=== PATIENT | female | born 1955 | race Caucasian/White ===

== ENCOUNTER → 2017-08-05 | Outpatient (CLI) | payer BC ==
--- NOTE | 2017-08-06 11:56 | BD ---
EXAMINATION TYPE: MG DEXA axial skeleton. DATE OF EXAM: 08/05/2017 COMPARISON: NONE CLINICAL HISTORY: Postmenopausal female. Osteoporosis screening. Height: 5 FT 4 1/2 IN Weight: 214 FRAX RISK QUESTIONS: History of Fracture in Adulthood: YES Secondary Osteoporosis: 3. Menopause before 45: NO 5. Chronic liver disease: FATTY RISK FACTORS HISTORY OF: Postmenopausal woman: PART HYST AGE 43 MEDICATIONS: Thyroid Medications: YES Which medication: SYNTHROID How Lon YEARS Additional Medications: ATORVASTATIN, LETROZOLE, FARXIGA, METFORMIN, INSULIN, SYNTHROID Additional History: BREAST CANCER 2017 RADIATION EXAM MEASUREMENTS: Bone mineral densitometry was performed using the [employer] System. Bone mineral density as measured about the Lumbar spine is: ----- L1-L4(G/cm2): 1.119 T Score Values are as follows: ----- L2: 0.4 ----- L3: -0.5 ----- L4: -1.4 ----- L1-L4: -0.5 BASELINE Bone mineral density about the R hip (g/cm2): 1.020 Bone mineral density about the L hip (g/cm2): 0.976 T Score values are as follows: -----R Neck: -0.1 -----L Neck: -0.4 -----R Total: 1.2 -----L Total: 0.1 BASELINE IMPRESSION: Normal (Values between +1 and -1 indicate normal bone mass). Consider repeating this study in 5 year s or sooner if there is some new clinical indication. NOTE: T-SCORE=SD OF THE YOUNG ADULT MEAN.
== END | disposition home or self-care (01) ==
LOC: RADBDWWP 16:32
PROVIDERS: ATTEND Internal Medicine Hematology & Oncology
DX: N95.1 Menopausal and female climacteric states (principal); C50.412 Malignant neoplasm of upper-outer quadrant of left female breast; Z79.890 Hormone replacement therapy
CPT/HCPCS: 77080

== ENCOUNTER → 2019-08-26 | Outpatient (CLI) | payer MEDICARE, BC ==
--- NOTE | 2019-08-26 10:47 | FL ---
EXAMINATION TYPE: FL UGI DATE OF EXAM: 08/26/2019 COMPARISON: NONE HISTORY: Epigastric pain TECHNIQUE: A double contrast UGI study is performed. 46 fluoroscopic images were saved with 1.16 min utes of fluoroscopy time was utilized. FINDINGS: The esophagus shows normal motility. There is emptying into the stomach secondary to a small hiatal h ernia. No evidence of stricture noted. The stomach shows normal distensibility, peristalsis, and mucosal folds. No evidence of any mass or ulcer disease. Moderate degree gastroesophageal reflux was seen during real time performance of this study. The duodenal bulb, sweep, and proximal small bowel loops are unremarkable. IMPRESSION: Small hiatal hernia resulting in moderate gastroesophageal reflux.
== END | disposition home or self-care (01) ==
LOC: RADUSWWP 09:38
PROVIDERS: ATTEND Family Medicine
DX: K44.9 Diaphragmatic hernia without obstruction or gangrene (principal); K21.9 Gastro-esophageal reflux disease without esophagitis
CPT/HCPCS: 74240

== ENCOUNTER → 2019-10-27 | Outpatient (CLI) | payer MEDICARE, BC ==
--- NOTE | 2019-10-27 17:44 | BD ---
EXAMINATION TYPE: Axial Bone Density DATE OF EXAM: 10/27/2019 COMPARISON: 08/05/2017 CLINICAL HISTORY: Height: 63.5 IN Weight: 199 LBS FRAX RISK QUESTIONS: History of Fracture in Adulthood: LT TIB/FIB FX AGE 61 RISK FACTORS HISTORY OF: Active: YES Postmenopausal woman: AGE 43 PARTIAL HYST Take estrogen and/or progesterone medications: NOT NOW How lon YEAR Lost more than 2 inches in height since high school: YES 2 1/2 IN MEDICATIONS: Thyroid Medications: YES Which medication: Levothyroxine How Long: SINCE 1997 Additional Medications: LEVOTHYROXINE, PROAIR HFA, LETROZOLE,ATORVASTATIN, METFORMIN Additional History: BREAST CANCER WITH RADIATION EXAM MEASUREMENTS: Bone mineral densitometry was performed using the [employer] System. Bone mineral density as measured about the Lumbar spine is: ----- L1-L4(G/cm2): 1.160 T Score Values are as follows: ----- L2: 0.5 ----- L3: -0.4 ----- L4: -1.0 ----- L1-L4: -0.2 Bone mineral density has: Increased 2.7% since study of: 08/05/2017 Bone mineral density about the R hip (g/cm2): 0.838 Bone mineral density about the L hip (g/cm2): 0.897 T Score values are as follows: -----R Neck: -1.4 -----L Neck: -1.0 -----R Total: -0.4 -----L Total: -0.6 Bone mineral density has: Decreased -13.3% since study of: 08/05/2017 IMPRESSION: Normal (Values between +1 and -1 indicate normal bone mass). Consider repeating this study in 5 year s or sooner if there is some new clinical indication. NOTE: T-SCORE=SD OF THE YOUNG ADULT MEAN.
== END | disposition home or self-care (01) ==
LOC: RADBDWWP 15:33
PROVIDERS: ATTEND Internal Medicine Hematology & Oncology
DX: C50.412 Malignant neoplasm of upper-outer quadrant of left female breast (principal); N95.1 Menopausal and female climacteric states
CPT/HCPCS: 77080

== ENCOUNTER → 2019-11-30 | Outpatient (CLI) | payer MEDICARE, BC ==
[2019-11-30 07:50] LABS: African American GFR (CKD) >90 (>60 ml/min/1.73 sqM); Blood Urea Nitrogen 31 mg/dL (7-17); Non-African American GFR(CKD) >90 (>60 ml/min/1.73 sqM)
--- NOTE | 2019-11-30 10:00 | CT ---
EXAMINATION TYPE: CT ChestAbdPelvis w con DATE OF EXAM: 11/30/2019 COMPARISON: None HISTORY: 64-year-old female Breast cancer, suspect METS TECHNIQUE: Contiguous axial scanning of the chest, abdomen, and pelvis performed with IV Contrast, pa tient injected with 100 mL of Isovue 300. Delayed images through the kidneys were obtained. Coronal/s agittal reconstructions performed. CT DLP: 1653.2 mGycm Automated exposure control for dose reduction was used. FINDINGS: CHEST: Postlumpectomy changes within the left breast. Heart borderline enlarged without pericardial effusion. Aorta shows conventional arterial supply and anatomy. Ectatic upper descending thoracic aorta 3.0 cm. No thoracic lymphadenopathy by CT size criteria. There is breathing motion artifact. Strandy atelectasis in the lower lungs. No consolidation or pleur al effusion. Nonspecific 5 mm right basilar pulmonary nodule, axial image 35 should be reassessed at follow-up. ABDOMEN: Small hiatal hernia. No focal liver lesion or biliary ductal dilatation. Portal venous system is patent. Gallbladder, adrenal glands, spleen within normal limits. Cysts within the bilateral kidneys measuring up to 2.8 cm on the right and 3.5 cm on the left. There is a low-density, cystic-appearing lesion measuring 1.4 x 0.8 cm along the pancreatic body, cor onal image 35 and axial image 61. Follow-up is recommended. No dilated small bowel, free fluid, or free air. No mesenteric or retroperitoneal lymphadenopathy. [id number] stool burden. Oral contrast progressed to the distal transverse colon. No pericoloni c inflammatory change. PELVIS: Bladder urine distended. Scattered pelvic phleboliths. Uterus surgically absent. Both ovaries are vis ualized. Mild pelvic floor relaxation. No abnormal fluid collection in the pelvis or pelvic lymphaden opathy. BONES: Accentuated mid to lower thoracic kyphosis with moderate degenerative disc disease. Facet arthropathy lower lumbar spine. No osseous destructive process. IMPRESSION: 1. POSTEXCISIONAL CHANGES WITHIN THE LEFT BREAST. 2. 5 MM NONSPECIFIC RIGHT BASILAR PULMONARY NODULE BUT OTHERWISE WITHOUT ANY EVIDENCE FOR METASTATIC DISEASE IN THE CHEST, ABDOMEN, OR PELVIS. THREE-MONTH FOLLOW-UP CT CHEST RECOMMENDED TO REASSESS. 3. LOW-DENSITY, CYSTIC-APPEARING LESION OF THE PANCREATIC BODY MEASURING 1.4 X 0.8 CM. PANCREAS MRI E VALUATION RECOMMENDED.
== END | disposition home or self-care (01) ==
LOC: RADCTMAIN 06:56
PROVIDERS: ATTEND Internal Medicine Hematology & Oncology
DX: R91.1 Solitary pulmonary nodule (principal); Z98.890 Other specified postprocedural states; C50.412 Malignant neoplasm of upper-outer quadrant of left female breast; Z88.2 Allergy status to sulfonamides; Z88.0 Allergy status to penicillin; Z91.048 Other nonmedicinal substance allergy status; Z88.1 Allergy status to other antibiotic agents
CPT/HCPCS: 82565; 84520; 71260; 74177; 36415; Q9967

== ENCOUNTER → 2020-03-09 | Outpatient (CLI) | payer MEDICARE, BC ==
[2020-03-09 18:21] LABS: African American GFR (CKD) >90 (>60 ml/min/1.73 sqM); Blood Urea Nitrogen 36 mg/dL (7-17); Non-African American GFR(CKD) >90 (>60 ml/min/1.73 sqM)
--- NOTE | 2020-03-10 05:10 | CT ---
EXAMINATION TYPE: CT ChestAbdPelvis w con DATE OF EXAM: 03/09/2020 COMPARISON: 11/30/2019 HISTORY: 64-year-old female C50.412, Follow up for breast cancer. TECHNIQUE: Contiguous axial scanning of the chest, abdomen, and pelvis performed with IV Contrast, pa tient injected with 100ml mL of Isovue 300. Delayed images through the kidneys were obtained. Coronal /sagittal reconstructions performed. CT DLP: 1732.1 mGycm Automated exposure control for dose reduction was used. FINDINGS: CHEST: Postsurgical and posttreatment change demonstrated within the left breast with posteriorly located reynolds rgical clips and skin thickening. Bilateral breast nodularity has an overall similar configuration as compared to 11/30/2019. Heart normal size without pericardial effusion. Conventional arch vessel branching anatomy. Ectatic u pper descending thoracic aorta at 3.1 cm. No axillary, mediastinal, or hilar lymphadenopathy by CT size criteria. No consolidation or pleural effusion. 6 mm right basilar pulmonary nodule, axial image 41 remains lar myron unchanged (old exam remeasured to provide a direct comparison). ABDOMEN: No focal liver lesion or biliary ductal dilatation. Portal venous system is patent. Gallbladder, adrenal glands, and spleen with small anterior splenule within normal limits. Cystic lesion along the anterior margin of the pancreatic body currently measures 1.9 x 0.9 cm (measu red on coronal and axial series) versus 1.4 x 0.8 cm on 11/30/2019. Two benign renal cortical cysts on the right measuring 3.0 cm each and a centrally located left midpo le renal cyst measuring 3.2 cm are redemonstrated. No dilated small bowel, free fluid, free air. No mesenteric or retroperitoneal lymphadenopathy. Liquid stool within the right hemicolon. Otherwise, there is mild to moderate stool burden. No roxann lonic inflammatory change. PELVIS: Bladder urine distended. Uterus surgically absent. Both ovaries are visualized. Left-sided pelvic phl ebolith. No abnormal fluid collection in the pelvis or pelvic lymphadenopathy. BONES: Stable tiny sclerotic bone island left femoral head and posterior right iliac bone. Facet arthropathy lower lumbar spine and endplate spondylosis mid to lower thoracic spine. Accentuated thoracic kyphos is. No osseous destructive process. IMPRESSION: 1. POSTLUMPECTOMY AND POSTTREATMENT CHANGES WITHIN THE LEFT BREAST. THE REMAINING NODULAR AREAS OF BR EAST TISSUE ON BOTH SIDES APPEARS UNCHANGED FROM 11/30/2019. 2. STABLE 6 MM RIGHT BASILAR PULMONARY NODULE FOR 3 MONTHS. 3. CYSTIC PANCREATIC BODY LESION CURRENTLY MEASURING 1.9 X 0.9 CM (VERSUS 1.4 X 0.8 CM, PREVIOUSLY). SLIGHT INCREASE IN SIZE. SIX-MONTH FOLLOW-UP WITH PANCREAS MRI WITH MRCP RECOMMENDED TO REASSESS AND FURTHER CHARACTERIZE.
== END | disposition home or self-care (01) ==
LOC: RADCTMAIN 16:50
PROVIDERS: ATTEND Internal Medicine Hematology & Oncology
DX: Z98.890 Other specified postprocedural states (principal); C50.412 Malignant neoplasm of upper-outer quadrant of left female breast; Z88.2 Allergy status to sulfonamides; Z88.0 Allergy status to penicillin; Z88.5 Allergy status to narcotic agent; Z88.1 Allergy status to other antibiotic agents
CPT/HCPCS: 82565; 84520; 71260; 74177; 36415; Q9967

== ENCOUNTER → 2020-05-01 | Outpatient (CLI) | payer MEDICARE, BC ==
--- NOTE | 2020-05-02 07:09 | MR ---
EXAMINATION TYPE: MR MRCP DATE OF EXAM: 05/01/2020 COMPARISON: CT March 09, [address] November 30, 2019 HISTORY: Pancreatic cyst, HX of Breast CA Standard multiplanar, multisequence MRI departmental protocol Multiplanar, multisequence images of the abdomen were acquired. Diffusion weighted imaging was perfor med. Thin and thick slice MRCP imaging performed on a MRI scanner. FINDINGS: Liver/gallbladder/pancreas/biliary system: Liver remains normal in size. Gallbladder appears within n ormal limits. There is no concerning solid or cystic intrahepatic mass. No intrahepatic or extra hepa tic biliary dilatation is present. Pancreas is normal in size. There is no pancreatic ductal dilatati on. There is a thin-walled cyst or cystic lesion anterior aspect mid body extending inferiorly measur ing 1.8 x 0.8 cm image 31 series 501 that appears to communicate with the main pancreatic duct on sabino ge 57 series 901 of MRCP images, this lesion has slightly more C-shaped structure on coronal image 13 measuring 1.8 cm craniocaudal dimension with suspected ductal communication. Lesion may be slightly larger from older studies. Remainder pancreas shows possible additional tiny punctate T2 hyperintense lesions in the distal body and tail. Remainder pancreatic duct unremarkable. Other: Scattered simple appearing thin-walled cysts of varying size and shape scattered throughout amy th kidneys with some cortical thinning. Findings consistent with products of chronic medical renal di sease. Lung bases are clear. No suspicious bowel dilatation. Visualized osseous structures are intact . IMPRESSION: There is 1.8 cm thin-walled cyst or cystic lesion in the anterior-inferior mid pancreatic body appears to communicate with main pancreatic duct. The lesion may be slightly larger from older studies. Differential includes cystic neoplasm such as IPMN, advise MRI/MRCP follow-up imaging in one year time to reassess.
== END | disposition home or self-care (01) ==
LOC: RADMRIMAIN 14:46
PROVIDERS: ATTEND Internal Medicine Hematology & Oncology
DX: K86.2 Cyst of pancreas (principal)
CPT/HCPCS: 74181

== ENCOUNTER → 2020-11-01 | Outpatient (CLI) | payer MEDICARE, BC | END | disposition home or self-care (01) | LOC: RADMRIMAIN 15:25 | PROVIDERS: ATTEND Internal Medicine Hematology & Oncology | DX: Z53.9 Procedure and treatment not carried out, unspecified reason (principal) ==

== ENCOUNTER → 2021-01-29 | Outpatient (CLI) | payer MEDICARE, BC ==
[2021-01-29 15:53] LABS: African American GFR (CKD) >90 (>60 ml/min/1.73 sqM); Blood Urea Nitrogen 26 mg/dL (7-17); Non-African American GFR(CKD) >90 (>60 ml/min/1.73 sqM)
--- NOTE | 2021-01-30 08:17 | CT ---
EXAMINATION TYPE: CT iac w con DATE OF EXAM: 01/29/2021 COMPARISON: NONE HISTORY: left acoustic nerve damage CT DLP: 187 mGycm. Automated Exposure Control for Dose Reduction was Utilized. TECHNIQUE: CT scan of internal auditory canal is performed with IV contrast, thin cut axial images ar e obtained, coronal reformatted images are also reviewed. Patient injected with 100 cc Isovue-300 FINDINGS: The external auditory canals are patent bilaterally. Mastoid air cells show no evidence of abnormal opacification bilaterally. The middle ear ossicles are symmetric and unremarkable. There is no evidence of suspicious surroundi ng soft tissue density to suggest cholesteatoma. The scutum is preserved bilaterally. The cochlea and the semicircular canals are symmetric and unremarkable. There is satisfactory bony o vergrowth over the superior semicircular canals bilaterally. Vestibular aqueduct and internal carotid canal appear unremarkable. No abnormal enhancement identified. Temporomandibular joints are maintained bilaterally. There are a few mucous retention cysts and/or po lyps in the maxillary sinuses bilaterally with mild mucosal thickening on the left along inferior asp ect. Visualized portion brain parenchyma is felt within normal limits. IMPRESSION: No significant abnormality seen to account for patient's symptoms.
== END | disposition home or self-care (01) ==
LOC: RADCTMAIN 14:51
PROVIDERS: ATTEND Otolaryngology
DX: H93.3X2 Disorders of left acoustic nerve (principal)
CPT/HCPCS: 82565; 84520; 70481; 36415; Q9967

== ENCOUNTER → 2021-03-01 | Outpatient (CLI) | payer MEDICARE, BC ==
[2021-03-01 14:53] LABS: African American GFR (CKD) >90 (>60 ml/min/1.73 sqM); Blood Urea Nitrogen 24 mg/dL (7-17); Non-African American GFR(CKD) >90 (>60 ml/min/1.73 sqM)
--- NOTE | 2021-03-01 16:15 | CT ---
EXAMINATION TYPE: CT chest w con DATE OF EXAM: 03/01/2021 COMPARISON: Recent CT March 09, 2020 HISTORY: f/u breast ca, right sided chest pain CT DLP: 582.4 mGycm. Automated Exposure Control for Dose Reduction was Utilized. TECHNIQUE: CT scan of the thorax is performed following with IV Contrast, patient injected with 100 mL of Isovue 300. FINDINGS: LUNGS: Mild bibasilar linear scarring and/or atelectasis. No suspicious focal consolidation. No pleur al effusion or pneumothorax seen bilaterally. MEDIASTINUM: There are no greater than 1 cm hilar or mediastinal lymph nodes. No pericardial effusi on is seen. Heart size stable and upper limits of normal. Mild coronary artery catheterization redem onstrated. OTHER: Surgical clips in the medial aspect of the left breast are redemonstrated. Bilateral breasts a re not completely included in [id number] on current study. No suspicious axillary adenopathy noted . Simple appearing thin-walled cysts throughout both kidneys are redemonstrated, exophytic anterior sup erior lesion is more hyperdense suggesting new internal proteinaceous or hemorrhagic fluid as it is s table in size from prior CT. Exaggerated thoracic kyphosis. Moderate multilevel spurring. IMPRESSION: No new or acute findings seen to account for patient's symptoms of right-sided pain.
== END | disposition home or self-care (01) ==
LOC: RADCTMAIN 14:05
PROVIDERS: ATTEND Internal Medicine Hematology & Oncology
DX: C50.412 Malignant neoplasm of upper-outer quadrant of left female breast (principal); E11.9 Type 2 diabetes mellitus without complications; R91.1 Solitary pulmonary nodule; R07.9 Chest pain, unspecified
CPT/HCPCS: 82565; 84520; 71260; 36415; Q9967

== ENCOUNTER → 2021-10-30 | Outpatient (CLI) | payer MEDICARE, BC ==
--- NOTE | 2021-10-31 19:24 | BD ---
EXAMINATION TYPE: Axial Bone Density DATE OF EXAM: 10/30/2021 CLINICAL HISTORY: 66 years year old Female. ICD-10 CODE: C50.412 BREAST CA Height: 5 FT 4 IN Weight: 206 FRAX RISK QUESTIONS: Alcohol (3 or more units per day): NO Family History (Parent hip fracture): NO Glucocorticoids (More than 3mos): NO (Ex: prednisone, prednisolone, methylprednisolone, dexamethasone, and hydrocortisone). History of Fracture in Adulthood: YES Secondary Osteoporosis: 1. Type 1 Diabetes: NO 2. Hyperthyroidism: REMOVED 3. Menopause before 45: NO 4. Malnutrition: NO 5. Chronic liver disease: NO Rheumatoid Arthritis: NO Current Tobacco Use: NO RISK FACTORS HISTORY OF: Surgery to Spine/Hip(right/left)/Wrist (right/left): NO Family History of Osteoporosis: NO Active: NO Diet low in dairy products/other sources of calcium: NO Postmenopausal woman: YES Take estrogen and/or progesterone medications: NO Lost more than 2 inches in height since high school: YES Frequent falls: UNSTEADY Poor Health: GOOD Hyperparathyroidism: NO Adrenal Insufficiency: NO MEDICATIONS: Thyroid Medications: YES Which medication: LEVOTHYROXINE How Long: SINCE 1997 Additional Medications: LEVOTHYROXINE, METFORMIN, PRO AIR, LETROZOLE, Additional History: EXAM MEASUREMENTS: Bone mineral densitometry was performed using the [employer] System. Bone mineral density as measured about the Lumbar spine is: ----- L1-L4(G/cm2): 1.084 T Score Values are as follows: ----- L1: 0.0 ----- L2: 0.0 ----- L3: -0.9 ----- L4: -2.0 ----- L1-L4: -0.8 Bone mineral density has: DECREASED -5.1 % since study of: 2018 Bone mineral density about the R hip (g/cm2): 0.769 Bone mineral density about the L hip (g/cm2): 0.845 T Score values are as follows: -----R Neck: -1.9 -----L Neck: -1.4 -----R Total: -1.3 -----L Total: -1.0 Bone mineral density has: DECREASED -20.6 % since study of: 2018 FRAX%s: The graph provided illustrates a 16.8 % chance for a major osteoporotic fx and a 2.7 % chance for the hips probability for fx in 10 years time. IMPRESSION: Osteopenia (T Score between -2.5 and -1). There is slightly increased risk of fracture and the patient may be considered for treatment. Re-Screen 2-5 years. NOTE: T-SCORE=SD OF THE YOUNG ADULT MEAN.
== END | disposition home or self-care (01) ==
LOC: RADBDWWP 16:06
PROVIDERS: ATTEND Internal Medicine Hematology & Oncology
DX: C50.412 Malignant neoplasm of upper-outer quadrant of left female breast (principal); M85.89 Other specified disorders of bone density and structure, multiple sites
CPT/HCPCS: 77080

== ENCOUNTER → 2022-02-13 | Outpatient (CLI) | payer MEDICARE, BC ==
[2022-02-13 18:01] LABS: African American GFR (CKD) >90 (>60 ml/min/1.73 sqM); Blood Urea Nitrogen 23 mg/dL (7-17); Non-African American GFR(CKD) >90 (>60 ml/min/1.73 sqM)
--- NOTE | 2022-02-13 20:12 | CT ---
EXAMINATION TYPE: CT abdomen pelvis w con CT DLP: 2305.9 mGycm, Automated exposure control for dose reduction was used. DATE OF EXAM: 02/13/2022 7:34 PM COMPARISON: Multiple CT abdomen pelvis dating back to 11/30/2019. MRI MRCP 05/01/2020 CLINICAL INDICATION:Female, 66 years old with history of C50.412 BR CANCER; Breast CA, cyst on pancre as TECHNIQUE: Axial CT of the abdomen and pelvis. Sagittal and coronal reformats were created on a [employer] workstation. Contrast used:100cc mL of Isovue 300 with IV Contrast, Oral contrast used: with Oral Contrast FINDINGS: LOWER CHEST: Left breast surgical changes. No evidence for mass in the left breast ABDOMEN LIVER: Unremarkable Hepatic steatosis. GALLBLADDER AND BILE DUCTS: Unremarkable. PANCREAS: Low-density area within the pancreatic body measures up to 3.6 cm which is similar to 2020. SPLEEN: Unremarkable. ADRENAL GLANDS: Unremarkable. KIDNEYS AND URETERS: No evidence of hydronephrosis or renal calculus. Bilateral simple renal cysts wi thin interval development of high density in the right. The right superior renal cyst now demonstrate s high density internal components measuring up to 3.8 cm and 82 Hounsfield units. , Previously in 20 21 measuring 3.1 cm and 10 Hounsfield units. PELVIS BLADDER: Unremarkable REPRODUCTIVE: Unremarkable. ABDOMEN & PELVIS STOMACH AND BOWEL: No evidence of bowel obstruction. Colonic diverticulosis. PERITONEUM: No evidence of pneumoperitoneum or free fluid. VASCULATURE: No evidence of aortic aneurysm. MUSCULOSKELETAL: No acute osseous abnormalities, mild multilevel disc degeneration changes throughout the spine. LYMPH NODES: No gross evidence for lymphadenopathy. SOFT TISSUE/ABDOMINAL WALL: Fat-containing left and no hernia. Small fat-containing umbilical hernia. IMPRESSION: 1. No evidence for acute intra-abdominal process. 2. Pancreatic body cystic lesion measuring up to 3.6 cm not significantly changed when given differe nces in measuring technique when comparing to 03/01/2021. 3. Hepatic steatosis. 4. Fat-containing left inguinal hernia. 5. High density right upper pole renal cyst likely representing hemorrhagic cyst given findings on p rior imaging of simple cyst.
== END | disposition home or self-care (01) ==
LOC: RADCTMAIN 17:04
PROVIDERS: ATTEND Internal Medicine Hematology & Oncology
DX: C50.412 Malignant neoplasm of upper-outer quadrant of left female breast (principal); K86.2 Cyst of pancreas; K76.0 Fatty (change of) liver, not elsewhere classified; K40.90 Unilateral inguinal hernia, without obstruction or gangrene, not specified as recurrent; N28.1 Cyst of kidney, acquired
CPT/HCPCS: 74177; 82565; 84520

== ENCOUNTER → 2023-05-15 | Outpatient (CLI) | payer MEDICARE ==
[2023-05-15 16:17] LABS: African American GFR (CKD) >90 (>60 ml/min/1.73 sqM); Blood Urea Nitrogen 22 mg/dL (7-17); Non-African American GFR(CKD) >90 (>60 ml/min/1.73 sqM)
--- NOTE | 2023-05-15 21:20 | CT ---
EXAMINATION TYPE: CT abdomen w con DATE OF EXAM: 05/15/2023 COMPARISON: 02/13/2022 HISTORY: 67 year-old female K8 6.2, Cyst of pancreas. TECHNIQUE: Contiguous axial scanning of the abdomen following administration of 100 ml Isovue 300 IV contrast. Delayed images through the kidneys and coronal/sagittal reconstructions performed. CT DLP: 1403 mGycm Automated exposure control for dose reduction was used. FINDINGS: Heart is upper limits of normal in size without pericardial effusion. Strandy atelectasis o r scarring in the lower lungs. Unchanged subpleural 7 mm pulmonary nodule overlying the right hemidia phragm. No pleural effusion. Tiny hiatal hernia. Liver enlarged measuring up to 23.2 cm with diminished attenuation compatible with fatty infiltration . Portal venous system is patent. No biliary ductal dilatation. Gallbladder, adrenal glands, spleen within normal limits. Redemonstrated 2.0 cm cyst anteriorly within the pancreas at the junction of the pancreatic body and tail. Bilateral renal cortical cysts redemonstrated measuring up to 3.8 cm on the right and 3.5 cm on the l eft. Symmetric uptake and excretion of contrast from both kidneys. No dilated small bowel, free fluid, or free air. No mesenteric or retroperitoneal lymphadenopathy. Th ere is mild to moderate stool burden. No pericolonic inflammatory change. Pelvis not imaged. DISH in the lower thoracic spine. IMPRESSION: 1. A 2.0 CM CYST AT THE JUNCTION OF THE PANCREATIC BODY AND TAIL REMAINS UNCHANGED FROM 02/13/2022. G IVEN THE SIZE, ANNUAL SURVEILLANCE FOLLOW-UP CAN BE PERFORMED. 2. Hepatomegaly at 23.2 cm with moderate to severe hepatic steatosis. Appropriate clinical management is advised.
== END | disposition home or self-care (01) ==
LOC: RADCTMAIN 15:28
PROVIDERS: ATTEND Internal Medicine Hematology & Oncology
DX: K86.2 Cyst of pancreas (principal); K76.0 Fatty (change of) liver, not elsewhere classified; R16.0 Hepatomegaly, not elsewhere classified; C50.412 Malignant neoplasm of upper-outer quadrant of left female breast; R91.1 Solitary pulmonary nodule; Z71.3 Dietary counseling and surveillance
CPT/HCPCS: 82565; 84520; 74160; 36415; Q9967

== ENCOUNTER → 2023-06-04 | Outpatient (CLI) | payer MEDICARE ==
--- NOTE | 2023-06-04 13:44 | MM ---
Reason for Exam: Follow-up at short interval from prior study. Last screening mammogram was performed 6 month(s) ago. Patient History: Menarche at age 9. First Full-Term at age 29. Late child-bearing (after 30). Hysterectomy at age 42. Postmenopausal. Breast cancer, left, age 60. Previous chest radiation therapy at age 60. US biopsy breast VAD RT on the Right side. MG pre op needle loc LT - 2 on the Left side. 06/21/1997, Benign Stereotactic Core Biopsy on the left side. Sister had breast cancer. Risk Values: Angie 5 year model risk: 1.7%. NCI Lifetime model risk: 5.2%. Prior Study Comparison: 10/29/1996 Bilateral Special View Mammogram, [facility]. 05/03/1997 Bilateral Special View Mammogram, [facility]. 11/28/2021 Bilateral Screening Mammogram, Unknown. 12/04/2022 Bilateral Screening Mammogram, Unknown. Tissue Density: The breasts are heterogeneously dense, which may obscure small masses. Findings: Analyzed By CAD. Nodularity seen bilaterally. Bilateral ultrasound recommended. Postlumpectomy changes left breast. No suspicious calcifications seen. Overall Assessment: Incomplete: need additional imaging evaluation, BI-RAD 0 Management: Diagnostic Breast Ultrasound of both breasts. . Results were given to the patient verbally at the time of exam. Patient should continue monthly self-breast exams. A clinical breast exam by your physician is recommended on an annual basis. This exam should not preclude additional follow-up of suspicious palpable abnormalities. Note on Angie scores and lifetime risk: 1. A Angie score greater than 3% is considered moderate risk. If this is the case, consider specialist referral to assess eligibility for a risk reducing agent. 2. If overall lifetime risk for the development of breast cancer is 20% or higher, the patient may qualify for future screening with alternating mammogram and breast MRI. Electronically signed and approved by: Jeff Chávez M.D. Radiologis
--- NOTE | 2023-06-04 14:06 | USB ---
Reason for Exam: Follow-up at short interval from prior study. Patient History: Menarche at age 9. First Full-Term at age 29. Late child-bearing (after 30). Hysterectomy at age 42. Postmenopausal. Breast cancer, left, age 60. Previous chest radiation therapy at age 60. US biopsy breast VAD RT on the Right side. MG pre op needle loc LT - 2 on the Left side. 06/21/1997, Benign Stereotactic Core Biopsy on the left side. Sister had breast cancer. Risk Values: Angie 5 year model risk: 1.7%. NCI Lifetime model risk: 5.2%. Technique: Method: Whole Breast Handheld. Patient Position: Supine. Prior Study Comparison: 10/29/1996 Bilateral Special View Mammogram, [facility]. 05/03/1997 Bilateral Special View Mammogram, [facility]. Findings: The whole breast of both breasts, the axilla of both breasts and the retroareolar of the right breast were scanned. Right breast: Hypoechoic area at the right o'clock position measuring 1.3 x 0.5 cm requires biopsy. No additional abnormal areas of echogenicity within the right breast. No adenopathy present. Left breast: Negative. Overall Assessment: Suspicious, BI-RAD 4 Management: Ultrasound Core Biopsy of the right breast. A clinical breast exam by your physician is recommended on an annual basis and results should be correlated with mammographic findings. This exam should not preclude additional follow-up of suspicious palpable abnormalities. Results were given to the patient verbally at the time of exam. Electronically signed and approved by: Jeff Chávez M.D. Radiologis
== END | disposition home or self-care (01) ==
LOC: RADMAMWWP 12:41
PROVIDERS: ATTEND Internal Medicine Hematology & Oncology
DX: R92.333 Mammographic heterogeneous density, bilateral breasts (principal); Z78.0 Asymptomatic menopausal state; Z80.3 Family history of malignant neoplasm of breast
CPT/HCPCS: 77066; 76641; G0279; 77062

== ENCOUNTER 2023-07-03 08:36 | Day surgery (SDC) | payer MEDICARE ==
[~2023-07-03 08:36] MED LIST: DEXAMETHASONE SOD PHOSPHATE 4 MG/ML 1 ML VIAL IV ONE; HYDROmorphone 0.5 MG/0.5 ML SYRINGE IVP PRN; LIDOCAINE 1% (10MG/ML) FOR IV START INTRADERMA PRN; MIDAZOLAM 2 MG/2 ML VIAL IV PRN
[2023-07-03] MEDS: ACETAMINOPHEN TAB 500 MG TAB PO PRN (10:06)
[2023-07-03] MEDS: ENALAPRILAT 1.25 MG/ML 1 ML VIAL ONE (10:25)
[2023-07-03] MEDS: LACTATED RINGERS 1,000 ML IV SCH (10:26)
[2023-07-03 10:38] LABS: Glucose,Whole Blood 202 mg/dL (70-110)
[2023-07-03] MEDS: LIDOCAINE 1% INJ 10MG/ML (20 ML MDV) SQ ONE (11:04)
[2023-07-03] MEDS: HEPARIN SODIUM,PORCINE 5,000 UNIT/ML 1 ML VIAL SQ PRN (11:45)
[2023-07-03] MEDS: ONDANSETRON 4 MG/2 ML VIAL IVP ONE (11:45)
[2023-07-03] MEDS ORDERED: PHENYLEPHRINE 10 MG/ML VIAL ONE (15:17)
[2023-07-03] MEDS ORDERED: PROPOFOL 10 MG/ML 20 ML VIAL IV ONE (15:17)
[2023-07-03] MEDS ORDERED: LIDOCAINE 1% INJ 10MG/ML (20 ML MDV) ONE (15:17)
[2023-07-03] MEDS ORDERED: fentaNYL (PF) 50 MCG/ML 2 ML AMP ONE (15:17)
[2023-07-03] MEDS ORDERED: ALBUTEROL HFA INHALER INHALATION ONE (15:17)
[2023-07-03] MEDS: BUPIVACAINE (PF) 0.25% 30 ML VIAL SQ ONE (16:00)
[2023-07-03] MEDS ORDERED: NALOXONE 0.4 MG/ML 1 ML VIAL IV PRN (16:08)
--- NOTE | 2023-07-03 16:10 | P.OP ---
Date of Procedure: 07/03/23 Procedure(s) Performed: PREOPERATIVE DIAGNOSIS: Abnormal right mammogram POSTOPERATIVE DIAGNOSIS: Same PROCEDURE: Right breast wire localization biopsy SURGEON: Khloe EBL: Minimal ANESTHESIA: General plus local COMPLICATIONS: None OPERATIVE PROCEDURE: Patient was placed on the operating room table in the reynolds pine position. The patient's breast was prepped and draped in usual sterile fashion. A curvilinear incision was made adjacent to the wire entrance site at the 2:00 location. I followed the wire down into the breast tissue. The breast tissue around the tip of the wire was fully excised using electrocautery. The specimen was sent for specimen radiogram. The clip and abnormality were present within the specimen. The subcutaneous tissues were inspected. No bleeding was seen. The subcutaneous tissues were closed using 3-0 Vicryl sutures. The skin was closed using a running 4-0 Monocryl stitch. Skin glue and sterile dressings were applied. DISPOSITION: Stable to recovery room
[2023-07-03 16:57] VITALS: TEMP 96.8
[2023-07-03 17:33] VITALS: RESP 16
[2023-07-03 18:08] VITALS: BP 158/78; PULSE 87
--- NOTE | 2023-07-08 14:59 | MM ---
Reason for Exam: Post Procedure Mammogram. Last screening mammogram was performed less than 1 month ago. Patient History: Menarche at age 9. First Full-Term at age 29. Late child-bearing (after 28). Hysterectomy at age 42. Postmenopausal. Breast cancer, left, age 60. Previous chest radiation therapy at age 60. US biopsy breast VAD RT on the Right side. MG pre op needle loc LT - 2 on the Left side. 06/21/1997, Benign Stereotactic Core Biopsy on the left side. Sister had breast cancer. Prior Study Comparison: 11/28/2021 Bilateral Screening Mammogram, Unknown. 12/04/2022 Bilateral Screening Mammogram, Unknown. 06/04/2023 Bilateral MG 3D diag mammo w/cad [facility], [facility]. Tissue Density: Right: The breasts are heterogeneously dense, which may obscure small masses. Pathology Description: Location: 2 o'clock. Needle Type: 5 cm [place] Informed consent was obtained and all the patient's questions were answered. The lesion in question was localized sonographically. The standard sterile technique was utilized, as well as appropriate local anesthesia with 1% Lidocaine. Localization needle followed by placement of a guidewire was performed under sonographic guidance. Verification images demonstrate appropriate deployment of the guidewire. The patient tolerated the procedure well and left the department in stable condition. Specimen radiograph demonstrates the lesion and guidewire in question to reside within the specimen. The clip is also within the specimen. IMPRESSION: Successful needle localization and open biopsy right breast with pathology results pending. Pathology Results: Result: Benign, Fibrocystic change. Pathology and radiology were reviewed. Findings are concordant. RIGHT BREAST, NEEDLE LOCALIZATION EXCISION: Benign breast with fibrocystic changes including fibroadenomatoid hyperplasia and nodular scar/fibrosis suggestive of previous procedure related changes. Overall Assessment: Benign Assessment: MG diagnostic mammo RT wo CAD - Right: Benign, BI-RAD 2. Management: Diagnostic Breast Ultrasound of the right breast in 6 months. Electronically signed and approved by: Jeff Chávez M.D. Radiologis
== END 2023-07-03 17:45 | disposition home or self-care (01) ==
LOC: OR 08:36
PROVIDERS: ATTEND Surgery
DX: N62 Hypertrophy of breast (principal); N60.31 Fibrosclerosis of right breast; L90.5 Scar conditions and fibrosis of skin
CPT/HCPCS: 88305; 77065; 76098; 76999; 19285; C1819; J1644; J0690; J2405; J2001; J3010; J2704; J2371; J0665